=== PATIENT | male | born 1950 | race Caucasian/White ===

== ENCOUNTER → 2018-01-17 14:35 | Outpatient (CLI) | payer MEDICARE, SELFPAY ==
--- NOTE | 2018-01-17 14:43 | XR_ITS ---
XR shoulder LT min 2V HISTORY: Left shoulder pain ITS.REASON: LT CHEST AND SHOULDER PAIN ORDERING PHYSICIAN: Dhruv Pagan PATIENT AGE: 67 years Comparison: None FINDINGS: No fracture or dislocation. No lytic or blastic change. There is normal mineralization. The joint spaces are well-preserved. No significant degenerative/arthritic changes. No erosive changes evident. IMPRESSION: Negative, no acute finding
--- NOTE | 2018-01-17 14:43 | XR_ITS ---
EXAM: XR cervical spine 5V HISTORY: Left shoulder pain ITS.REASON: LT CHEST AND SHOULDER PAIN ORDERING PHYSICIAN: Dhruv Pagan PATIENT AGE: 67 years COMPARISON: None FINDINGS: Normal alignment. Degenerative disc disease is present at C5-C6 with decrease in the disc space and osteophyte formation of the endplates and uncovertebral joint. There is narrowing of the C5-C6 foramen on both sides. There is also mild narrowing of the C3 C4 foramen. Facet arthritic changes are present at from C3 to C6. No cervical ribs. IMPRESSION: Degenerative disc disease at C5-C6 with bilateral foraminal narrowing at that level with mild facet arthritic change
--- NOTE | 2018-01-17 14:43 | XR_ITS ---
XR chest 2V HISTORY: ITS.REASON: LT CHEST AND SHOULDER PAIN ORDERING PHYSICIAN: Dhruv Pagan PATIENT AGE: 67 years COMPARISON: 06/02/2014 FINDINGS: There has been a prior CABG. There is cardiomegaly without failure. Chronic blunting of the left CP angle. No lobar consolidation or collapse. No acute bony anomalies. IMPRESSION: No change prior CABG with cardiomegaly and chronic changes in the left lung base. No acute finding.
== END ==
PROVIDERS: PCP Internal Medicine; Visit Provider Internal Medicine
DX: R09.89 Other specified symptoms and signs involving the circulatory and respiratory systems (principal); M25.512 Pain in left shoulder; M54.2 Cervicalgia; Z85.038 Personal history of other malignant neoplasm of large intestine
CPT/HCPCS: 71046; 72050; 73030

== ENCOUNTER → 2019-01-22 20:00 | Outpatient (CLI) | payer MEDICARE, SELFPAY ==
[2019-01-23 08:37] LABS: Adenovirus F 40/41, stool Not Detected (NotDetected); Astrovirus Not Detected (NotDetected); Clostridium Difficile A/B, PCR Not Detected (NotDetected); Cryptosporidium Not Detected (NotDetected); Cyclospora Cayetanesis Not Detected (NotDetected); Entamoeba histolytica Not Detected (NotDetected); Enteroaggregative E coli Not Detected (NotDetected); Enterotoxigenic E coli Not Detected (NotDetected); Giardia lamblia Not Detected (NotDetected); Norovirus Not Detected (NotDetected); Plesimonas Shigalloides, PCR Not Detected (NotDetected); Rotavirus A Not Detected (NotDetected); Salmonella, PCR Not Detected (NotDetected); Sapovirus Not Detected (NotDetected); Shiga-like toxin E coli Not Detected (NotDetected); Shigella Enterovasive E coli Not Detected (NotDetected); Vibrio Cholerae Not Detected (NotDetected); Vibrio, PCR Not Detected (NotDetected); Yersinia Entercolitica, PCR Not Detected (NotDetected)
[2019-01-23 13:50] LABS: Campylobacter Detected (NotDetected); Enteropathogenic E coli Detected (NotDetected)
== END ==
PROVIDERS: Visit Provider Internal Medicine
DX: K52.9 Noninfective gastroenteritis and colitis, unspecified (principal); A04.5 Campylobacter enteritis; A04.0 Enteropathogenic Escherichia coli infection
CPT/HCPCS: 87506

== ENCOUNTER → 2019-02-18 15:41 | Outpatient (CLI) | payer MEDICARE, SELFPAY ==
[2019-02-18 15:55] LABS: Basophils % 0.4 % (0.1-2.0); Eosinophils # 0.2 K/mm3 (0.0-0.4); Eosinophils % 1.9 % (0.1-12.0); Hematocrit 50.2 % (42.0-52.0); Hemoglobin 15.7 g/dL (14.1-18.0); Lymphocytes # 2.3 K/mm3 (0.7-4.5); Lymphocytes % 23.5 % (10-50); Mean Corpuscular HGB Conc 31.2 g/dL (31.8-35.4); Mean Corpuscular Hemoglobin 30.3 pg (27.0-31.2); Mean Corpuscular Volume 97.1 fl (80-94); Mean Platelet Volume 6.9 fl (7.4-10.4); Monocytes # 0.6 K/mm3 (0.1-1.0); Monocytes % 5.9 % (1.7-9.3); Neutrophils # 6.5 K/mm3 (1.8-7.8); Neutrophils % 68.2 % (37.0-80.0); Platelet Count 364 K/mm3 (142-424); Red Blood Count 5.18 M/mm3 (4.60-6.20); Red Cell Distribution Width 14.2 % (11.5-17.5); White Blood Count 9.6 K/mm3 (4.8-10.8)
--- NOTE | 2019-02-18 15:59 | ECG_ITS ---
APPROVED REPORT Exam: Resting ECG HR:63 bpm ECG Measurements Heart Rate 63 AXES [place] 188 P 15 QRSd 108 QRS -38 QT 416 T 63 QTc 425 <Conclusion> Normal sinus rhythm Left axis deviation Inferior infarct, old Old poor r wave progression Abnormal ECG Electronically signed by : Rico Blandon, 02/18/2019 17:06:04
--- NOTE | 2019-02-18 16:01 | XR_ITS ---
PROCEDURE: XR CHEST 2V CLINICAL HISTORY: SOA,COUGH,CHEST PAIN COMPARISON: CXR CHEST(2 VIEWS-NOT PORTABLE) from 05/27/2014 CXR CHEST(2 VIEWS-NOT PORTABLE) from 06/02/[address] [facility] [address] CHEST W/O CONTRAST from 06/04/2014 CXR2V XR chest 2V from 01/17/2018 FINDINGS: Cardiac silhouette is stable mildly enlarged. The hilar areas and pulmonary vessels are normal. The lungs are clear without infiltrates, suspicious nodules, or pleural effusions. There are stable mild left lateral and posterior pleural thickening even when compared with 05/27/2014 indicating pleural thickening. Also stable is the bilateral lateral mild pleural thickening. No acute bony abnormalities. IMPRESSION: No acute process or significant change. Benign stable mild left lateral pleural thickening. Dictated by: Kendrick Valladares 02/18/2019 16:35 Electronically signed by Kendrick Valladares in 02/18/2019 16:35
[2019-02-18 16:29] LABS: Anion Gap 12.7 mEq/L (5-15); Blood Urea Nitrogen 26 mg/dL (7-18); Calcium 9.5 mg/dL (8.5-10.1); Carbon Dioxide 28 mmol/L (21.0-32.0); Chloride 100 mmol/L (98-107); Creatinine,Serum 1.21 mg/dL (0.70-1.30); Estimated Glomerular Filt Rate 59 ml/min (>60); GFR (African American) 72 ML/MIN (>60); Glucose 301 mg/dL (74-106); Sodium 136 mmol/L (136-145)
[2019-02-18 16:31] LABS: Potassium 4.7 mmoL/L (3.5-5.1)
[2019-02-18 16:32] LABS: Troponin I 1.01 ng/ml (0.00-0.06)
== END ==
PROVIDERS: Visit Provider Internal Medicine
DX: R06.02 Shortness of breath (principal); R05 Cough; R07.9 Chest pain, unspecified; I10 Essential (primary) hypertension
CPT/HCPCS: 36415; 71046; 80048; 84484; 85025; 93005

== ENCOUNTER → 2019-09-13 13:50 | Outpatient (CLI) | payer MEDICARE, SELFPAY ==
--- NOTE | 2019-09-13 13:58 | XR_ITS ---
PROCEDURE: XR CHEST 2V CLINICAL HISTORY: LUNG NODULE Follow-up nodule COMPARISON: CXR CHEST(2 VIEWS-NOT PORTABLE) from 06/02/[address] [facility] [address] CHEST W/O CONTRAST from 06/04/2014 CXR2V XR chest 2V from 01/17/2018 XR CHEST 2V from 02/18/2019 FINDINGS: Prior CABG with cardiomegaly Pleural thickening is present in left lung base. No lobar consolidation or collapse. No acute bony abnormalities. IMPRESSION: Cardiomegaly with pleural thickening on the left. No change with no acute finding Dictated by: Elver Tang MD 09/13/2019 16:14 Electronically signed by Elver Tang MD in [place] 09/13/2019 16:14
== END ==
PROVIDERS: PCP Internal Medicine; Visit Provider Thoracic Surgery (Cardiothoracic Vascular Surgery)
DX: R91.1 Solitary pulmonary nodule (principal)
CPT/HCPCS: 71046

== ENCOUNTER → 2019-10-17 09:31 | Outpatient (CLI) | payer MEDICARE, SELFPAY | PROVIDERS: PCP Internal Medicine; Visit Provider Internal Medicine | DX: R06.02 Shortness of breath (principal); R42 Dizziness and giddiness | CPT/HCPCS: 94618 ==

== ENCOUNTER → 2022-03-16 10:05 | Outpatient (CLI) | payer MEDICARE, SELFPAY ==
--- NOTE | 2022-03-16 | XR_ITS ---
FINAL REPORT CLINICAL HISTORY: PERSISTANT L MAXILLARY SINUSITIS FINDINGS: SINUSES 3 views were obtained. There is opacifications of the left maxillary sinus consistent with sinusitis. There is no acute fracture. IMPRESSION: Left maxillary sinusitis. Reviewed, Interpreted and Dictated by John Lopez III, MD Transcribed by Jose Bearden Authenticated and [facility]
== END ==
PROVIDERS: PCP Internal Medicine; Visit Provider Internal Medicine
DX: J32.0 Chronic maxillary sinusitis (principal)
CPT/HCPCS: 70220

== ENCOUNTER → 2022-08-30 08:30 | Outpatient (CLI) | payer MEDICARE, SELFPAY ==
--- NOTE | 2022-08-30 08:46 | ECG_ITS ---
APPROVED REPORT Exam: Resting ECG HR:65 bpm ECG Measurements Heart Rate 65 AXES [place] 220 P 19 QRSd 170 QRS 126 QT 440 T -18 QTc 452 Conclusion SINUS RHYTHM WITH FIRST DEGREE AV BLOCK INTRAVENTRICULAR CONDUCTION DELAY [130+ ms QRS DURATION] ABNORMAL ECG UNCONFIRMED REPORT Electronically signed by : Rico Blandon MD 08/30/2022 20:41:13
[2022-08-30 09:40] LABS: Basophils # 0.1 K/mm3 (0-0.2); Basophils % 0.5 % (0.1-2.0); Eosinophils # 0.1 K/mm3 (0.0-0.4); Eosinophils % 1.1 % (0.1-12.0); Hematocrit 57.2 % (42.0-52.0); Hemoglobin 17.8 g/dL (14.1-18.0); Lymphocytes # 2.1 K/mm3 (0.7-4.5); Lymphocytes % 17.8 % (10-50); Mean Corpuscular HGB Conc 31.2 g/dL (31.8-35.4); Mean Corpuscular Hemoglobin 31.1 pg (27.0-31.2); Mean Corpuscular Volume 99.7 fl (80-94); Mean Platelet Volume 7.8 fl (7.4-10.4); Monocytes # 0.8 K/mm3 (0.1-1.0); Monocytes % 7.1 % (1.7-9.3); Neutrophils # 8.5 K/mm3 (1.8-7.8); Neutrophils % 73.5 % (37.0-80.0); Platelet Count 362 K/mm3 (142-424); Red Blood Count 5.74 M/mm3 (4.60-6.20); Red Cell Distribution Width 13.5 % (11.5-17.5); White Blood Count 11.5 K/mm3 (4.8-10.8)
[2022-08-30 11:05] LABS: Alanine Aminotransferase 20 U/L (12-78); Albumin Level 4.5 g/dl (3.5-5.0); Albumin/Globulin Ratio 1.7 (1.1-1.8); Alkaline Phosphatase 70 U/L (38-126); Anion Gap 12.6 mEq/L (5-15); Aspartate Amino Transferase 21 U/L (17-59); Blood Urea Nitrogen 20 mg/dl (9-20); Calcium 9.5 mg/dl (8.4-10.2); Carbon Dioxide 26 mmol/L (22.0-30.0); Chloride 103 mmol/L (98-107); Estimated Glomerular Filt Rate 83 ml/min (>60); GFR (African American) 100 ML/MIN (>60); Globulin 2.7 g/dL (1.3-3.2); Glucose 170 mg/dl (74-100); Potassium 4.6 mmoL/L (3.5-5.1); Sodium 137 mmol/L (136-145); Total Protein,Serum 7.2 g/dl (6.3-8.2)
== END ==
PROVIDERS: PCP Internal Medicine; Visit Provider Otolaryngology
DX: R79.1 Abnormal coagulation profile; Z01.818 Encounter for other preprocedural examination
CPT/HCPCS: 36415; 80053; 85025; 93005

== ENCOUNTER → 2023-03-14 14:46 | Outpatient (CLI) | payer MEDICARE, SELFPAY ==
--- NOTE | 2023-03-14 14:52 | XR_ITS ---
FINAL REPORT CLINICAL HISTORY: SOA, CHEST PAIN COMPARISON: 09/13/2019 FINDINGS: TWO-VIEW CHEST There is cardiomegaly. The patient is status post median sternotomy. Elevated right hemidiaphragm is identified. There is mild right base opacity, favor atelectasis. There is a small right effusion. There is no pneumothorax. IMPRESSION: Right base opacity, favor atelectasis with small right effusion. Reviewed, Interpreted and Dictated by John Lopez III, MD Transcribed by Idania Ng Authenticated and [facility]
--- NOTE | 2023-03-14 15:24 | ECG_ITS ---
APPROVED REPORT Exam: Resting ECG HR:71 bpm ECG Measurements Heart Rate 71 AXES [place] 221 P 25 QRSd 164 QRS -78 QT 415 T 74 QTc 437 Conclusion SINUS RHYTHM WITH FIRST DEGREE AV BLOCK LEFT AXIS DEVIATION [QRS AXIS < -30] LEFT BUNDLE BRANCH BLOCK [120+ ms QRS DURATION, 80+ ms Q/S IN V1/V2, 85+ ms R IN I/aVL/V5/V6] ABNORMAL ECG Electronically signed by : Dhruv Pagan MD 03/14/2023 16:09:52
[2023-03-14 15:25] LABS: Basophils % 0.3 % (0.1-2.0); Eosinophils # 0.2 K/mm3 (0.0-0.4); Eosinophils % 1.5 % (0.1-12.0); Hematocrit 51.6 % (42.0-52.0); Hemoglobin 17.1 g/dL (14.1-18.0); Lymphocytes # 1.7 K/mm3 (0.7-4.5); Mean Corpuscular HGB Conc 33.3 g/dL (31.8-35.4); Mean Corpuscular Hemoglobin 34.1 pg (27.0-31.2); Mean Corpuscular Volume 102.4 fl (80-94); Mean Platelet Volume 7.4 fl (7.4-10.4); Monocytes # 0.7 K/mm3 (0.1-1.0); Monocytes % 5.5 % (1.7-9.3); Neutrophils # 9.6 K/mm3 (1.8-7.8); Neutrophils % 78.7 % (37.0-80.0); Platelet Count 267 K/mm3 (142-424); Red Blood Count 5.03 M/mm3 (4.60-6.20); Red Cell Distribution Width 15.6 % (11.5-17.5); White Blood Count 12.2 K/mm3 (4.8-10.8)
[2023-03-14 15:32] LABS: Chloride 104 mmol/L (98-107); Hemoglobin A1C 9.9 % (4.0-6.0)
[2023-03-14 15:33] LABS: Potassium 4.4 mmoL/L (3.5-5.1); Sodium 139 mmol/L (136-145)
[2023-03-14 15:35] LABS: Alanine Aminotransferase 24 U/L (12-78); Alkaline Phosphatase 67 U/L (38-126); Aspartate Amino Transferase 23 U/L (17-59); Bilirubin,Total 0.7 mg/dl (0.2-1.3); Blood Urea Nitrogen 21 mg/dl (9-20); Estimated Glomerular Filt Rate 66 ml/min (>60); GFR (African American) 79 ML/MIN (>60)
[2023-03-14 15:36] LABS: Albumin Level 4.2 g/dl (3.5-5.0); Albumin/Globulin Ratio 1.4 (1.1-1.8); Anion Gap 10.4 mEq/L (5-15); Carbon Dioxide 29 mmol/L (22.0-30.0); Chol/HDL Ratio 2.5 (1-3.5); Cholesterol 107 mg/dl (140-200); Globulin 2.9 g/dL (1.3-3.2); Glucose 303 mg/dl (74-100); HDL Cholesterol 42 mg/dl (40-60); Total Protein,Serum 7.1 g/dl (6.3-8.2); Triglycerides 257 mg/dl (30-150); VLDL Cholesterol 51 mg/dL (0-40)
[2023-03-14 15:48] LABS: NT Pro Brain Natriuretic Pep. 634 pg/mL (0-125)
[2023-03-14 15:50] LABS: Troponin I 0.03 ng/ml (0.00-0.034)
== END ==
PROVIDERS: PCP Internal Medicine; Visit Provider Internal Medicine
DX: R07.9 Chest pain, unspecified (principal); E11.59 Type 2 diabetes mellitus with other circulatory complications; R06.02 Shortness of breath; R10.12 Left upper quadrant pain
CPT/HCPCS: 71046; 80053; 80061; 83036; 83880; 84484; 85025; 93005